=== PATIENT | male | born 1995 | race Two or more races ===

== ENCOUNTER 2019-12-10 11:41 | Inpatient (IN) | payer MEDICAID ==
[~2019-12-10] VITALS: Ht 167.6 cm; Wt 83.4 kg
[2019-12-10] MEDS ORDERED: DiphenhydrAMINE HCL 50 MG/ML VIAL IM ONE (13:00)
[2019-12-10] MEDS ORDERED: HALOPERIDOL LACTATE 5 MG/ML VIAL IM ONE (13:00)
[2019-12-10] MEDS ORDERED: LORazepam 2 MG/ML VIAL IM ONE (13:00)
[2019-12-10 13:26] LABS: BASOPHILS % (AUTO) 0.6 % (0.0-2.0); EOSINOPHILS % (AUTO) 0.3 % (1.0-6.0); HEMATOCRIT 44.8 % (41-53); HEMOGLOBIN 15.2 g/dL (13.5-17.5); LYMPHOCYTES # (AUTO) 1.3 K/uL (1.0-4.8); LYMPHOCYTES % (AUTO) 15.3 % (22.0-44.0); MEAN CORPUSCULAR HEMOGLOBIN 33.1 pg (26.0-34.0); MEAN CORPUSCULAR VOLUME 97 fL (80-100); MONOCYTES # (AUTO) 0.6 K/uL (0.1-1.0); NEUTROPHILS # (AUTO) 6.6 K/uL (1.8-7.7); NEUTROPHILS % (AUTO) 76.8 % (40.0-70.0); PLATELET COUNT (AUTO) 223 K/uL (150-450); RED BLOOD CELL COUNT(AUTO) 4.61 MIL/uL (4.50-5.90)
[2019-12-10 13:33] LABS: AMPHET/METH SCREEN,URINE NEGATIVE (NEGATIVE); BARBITURATE SCREEN, URINE NEGATIVE (NEGATIVE); BENZODIAZEPINES SCREEN,URINE NEGATIVE (NEGATIVE); CANNABINOID SCREEN,URINE POSITIVE (NEGATIVE); COCAINE SCREEN,URINE NEGATIVE (NEGATIVE); METHADONE SCREEN, URINE NEGATIVE (NEGATIVE); OPIATE SCREEN,URINE NEGATIVE (NEGATIVE)
[2019-12-10 13:36] LABS: PHENCYCLIDINE SCREEN,URINE NEGATIVE (NEGATIVE)
[2019-12-10 13:44] LABS: ALANINE AMINOTRANSFERASE 30 U/L (12-78); ALBUMIN 4.3 g/dL (3.4-5.0); ALKALINE PHOSPHATASE 82 U/L (46-116); ANION GAP 9 mmol/L (8-16); ASPARTATE AMINOTRANSFERASE 32 U/L (15-37); BILIRUBIN,TOTAL 0.8 mg/dL (0.1-1.0); CALCIUM, TOTAL 9.2 mg/dL (8.8-10.5); CARBON DIOXIDE 25 mmol/L (22-29); CHLORIDE 103 mmol/L (98-107); CREATININE 1.05 mg/dL (0.60-1.30); GLOMERULAR FILTR. RATE CALC > 60 mL/min (>60); GLUCOSE,RANDOM 144 mg/dL (70-110); POTASSIUM 3.5 mmol/L (3.5-5.1); SODIUM SERUM 137 mmol/L (136-145); TOTAL PROTEIN, SERUM 8.2 g/dL (6.4-8.2); UREA NITROGEN, BLOOD 8 mg/dL (7-18)
[2019-12-10 20:07] VITALS: BP 129/83
[2019-12-11] MEDS ORDERED: INFLUENZA VIRUS VACCINE QVS 2019-20 (3YR+)/PF 60 MCG/0.5 ML SYRINGE IM ONE (07:00)
[2019-12-11 08:10] LABS: CHOL/HDL RATIO 2.7 (4.2-7.3)
[2019-12-11] MEDS ORDERED: ONDANSETRON HCL 4 MG TABLET PO PRN (14:30)
[2019-12-11] MEDS ORDERED: GuaiFENesin/D-METHORPHAN [SUGAR-FREE] 200-20MG/10 ML SYRUP UDCUP PO PRN (14:30)
[2019-12-11] MEDS ORDERED: LOPERAMIDE HCL 2 MG CAPSULE PO PRN (14:30)
[2019-12-11] MEDS ORDERED: PETROLATUM,WHITE 28 GM JELLY TP PRN (14:30)
[2019-12-11] MEDS ORDERED: MAG HYDROX/AL HYDROX/SIMETH ES 30 ML SUSPENSION UDCUP PO PRN (14:30)
[2019-12-11] MEDS ORDERED: CloNIDine HCL 0.1 MG TABLET PO PRN (14:30)
[2019-12-11] MEDS ORDERED: ACETAMINOPHEN 325 MG TABLET PO PRN (14:30)
[2019-12-11] MEDS ORDERED: ALBUTEROL SULFATE HFA 90 MCG/PUFF 8 GM INHALER IH PRN (14:30)
[2019-12-11] MEDS ORDERED: MAGNESIUM HYDROXIDE SUSPENSION 30 ML UDCUP PO PRN (14:30)
[2019-12-11] MEDS ORDERED: DOCUSATE SODIUM 100 MG CAPSULE PO PRN (14:30)
[2019-12-11] MEDS ORDERED: NICOTINE 14 MG/24 HOUR PATCH TD PRN (14:30)
[2019-12-11 16:07] VITALS: BP 153/90
[2019-12-11] MEDS: OLANZapine 5 MG TABLET PO SCH (16:40)
[2019-12-12 08:14] VITALS: BP 154/94
[2019-12-12] MEDS: OLANZapine 5 MG TABLET PO SCH (08:15)
[2019-12-12 08:54] LABS: BASOPHILS % (AUTO) 0.4 % (0.0-2.0); EOSINOPHILS % (AUTO) 0.5 % (1.0-6.0); HEMATOCRIT 46.1 % (41-53); HEMOGLOBIN 15.5 g/dL (13.5-17.5); LYMPHOCYTES # (AUTO) 2.2 K/uL (1.0-4.8); LYMPHOCYTES % (AUTO) 29.6 % (22.0-44.0); MEAN CORPUSCULAR HGB CONC 33.6 G/dL (31.0-37.0); MEAN CORPUSCULAR VOLUME 98 fL (80-100); MONOCYTES # (AUTO) 0.5 K/uL (0.1-1.0); MONOCYTES % (AUTO) 7.3 % (2.0-9.0); NEUTROPHILS # (AUTO) 4.7 K/uL (1.8-7.7); NEUTROPHILS % (AUTO) 62.2 % (40.0-70.0); PLATELET COUNT (AUTO) 217 K/uL (150-450)
[2019-12-12] MEDS: LORazepam 2 MG TABLET PO PRN ×2 (12:16→18:15)
[2019-12-12] MEDS: OLANZapine 7.5 MG TABLET PO SCH (17:00)
[2019-12-13] MEDS: ZOLPIDEM TARTRATE 10 MG TABLET PO PRN (00:56)
[2019-12-13] MEDS: HALOPERIDOL 5 MG TABLET PO PRN (00:56)
[2019-12-13] MEDS: LORazepam 2 MG TABLET PO PRN ×2 (02:10→08:33)
[2019-12-13] MEDS: OLANZapine 7.5 MG TABLET PO SCH ×2 (08:33→17:14)
[2019-12-13 08:36] VITALS: BP 139/86
[2019-12-13 17:06] VITALS: BP 137/84
[2019-12-13] MEDS ORDERED: HALOPERIDOL LACTATE 5 MG/ML VIAL ONE (23:36)
[2019-12-13] MEDS ORDERED: DiphenhydrAMINE HCL 50 MG/ML VIAL ONE (23:36)
[2019-12-13] MEDS ORDERED: LORazepam 2 MG/ML VIAL ONE (23:36)
[2019-12-13] MEDS ORDERED: LORazepam 2 MG/ML VIAL IM ONE (23:45)
[2019-12-13] MEDS ORDERED: HALOPERIDOL LACTATE 5 MG/ML VIAL IM ONE (23:45)
[2019-12-13] MEDS ORDERED: DiphenhydrAMINE HCL 50 MG/ML VIAL IM ONE (23:45)
[2019-12-14] MEDS: OLANZapine 10 MG TABLET PO SCH ×2 (08:03→16:13)
[2019-12-14] MEDS: LORazepam 2 MG TABLET PO PRN (16:13)
[2019-12-14 16:36] VITALS: BP 134/78
[2019-12-14] MEDS: ZOLPIDEM TARTRATE 10 MG TABLET PO PRN (20:19)
[2019-12-15] MEDS: OLANZapine 10 MG TABLET PO SCH ×2 (08:24→16:21)
[2019-12-15 09:54] VITALS: BP 160/87
[2019-12-15 16:00] VITALS: BP 134/69
[2019-12-15] MEDS: DIVALPROEX SODIUM 500 MG ER TABLET PO SCH (16:21)
[2019-12-16] MEDS: ZOLPIDEM TARTRATE 10 MG TABLET PO PRN (01:42)
[2019-12-16] MEDS: LORazepam 2 MG TABLET PO PRN ×3 (01:42→19:54)
[2019-12-16 07:04] LABS: BASOPHILS % (AUTO) 0.7 % (0.0-2.0); EOSINOPHILS % (AUTO) 1.3 % (1.0-6.0); HEMATOCRIT 44.9 % (41-53); HEMOGLOBIN 15.1 g/dL (13.5-17.5); LYMPHOCYTES # (AUTO) 2.2 K/uL (1.0-4.8); LYMPHOCYTES % (AUTO) 36.9 % (22.0-44.0); MEAN CORPUSCULAR HEMOGLOBIN 33.1 pg (26.0-34.0); MEAN CORPUSCULAR HGB CONC 33.6 G/dL (31.0-37.0); MEAN CORPUSCULAR VOLUME 98 fL (80-100); MONOCYTES # (AUTO) 0.4 K/uL (0.1-1.0); MONOCYTES % (AUTO) 7.3 % (2.0-9.0); NEUTROPHILS # (AUTO) 3.2 K/uL (1.8-7.7); NEUTROPHILS % (AUTO) 53.8 % (40.0-70.0); PLATELET COUNT (AUTO) 212 K/uL (150-450); RED BLOOD CELL COUNT(AUTO) 4.57 MIL/uL (4.50-5.90); RED CELL DISTRIBUTION WIDTH 13.1 % (11.5-14.5)
[2019-12-16 07:25] LABS: ANION GAP 7 mmol/L (8-16); CARBON DIOXIDE 28 mmol/L (22-29); CHLORIDE 103 mmol/L (98-107); CREATININE 0.81 mg/dL (0.60-1.30); GLUCOSE,RANDOM 84 mg/dL (70-110); SODIUM SERUM 138 mmol/L (136-145); UREA NITROGEN, BLOOD 11 mg/dL (7-18)
[2019-12-16 07:26] LABS: ALANINE AMINOTRANSFERASE 21 U/L (12-78); ALBUMIN 3.5 g/dL (3.4-5.0); ALKALINE PHOSPHATASE 70 U/L (46-116); ASPARTATE AMINOTRANSFERASE 23 U/L (15-37); BILIRUBIN,TOTAL 0.4 mg/dL (0.1-1.0); CALCIUM, TOTAL 8.8 mg/dL (8.8-10.5); GLOMERULAR FILTR. RATE CALC > 60 mL/min (>60); TOTAL PROTEIN, SERUM 7.1 g/dL (6.4-8.2)
[2019-12-16 08:17] VITALS: BP 138/68
[2019-12-16] MEDS: OLANZapine 10 MG TABLET PO SCH ×2 (08:23→15:54)
[2019-12-16] MEDS: DIVALPROEX SODIUM 500 MG ER TABLET PO SCH ×2 (08:23→15:54)
[2019-12-16] MEDS: HALOPERIDOL 5 MG TABLET PO PRN (16:03)
[2019-12-16 16:12] VITALS: BP 148/93
[2019-12-16 16:14] VITALS: BP 142/93
[2019-12-17] MEDS: OLANZapine 10 MG TABLET PO SCH ×2 (08:27→16:24)
[2019-12-17] MEDS: DIVALPROEX SODIUM 500 MG ER TABLET PO SCH ×2 (08:27→16:24)
[2019-12-17 10:23] VITALS: BP 124/71
[2019-12-17 16:09] VITALS: BP 127/74
[2019-12-17 16:17] VITALS: BP 127/74
[2019-12-18] MEDS: DIVALPROEX SODIUM 500 MG ER TABLET PO SCH (09:12)
[2019-12-18] MEDS: OLANZapine 10 MG TABLET PO SCH (09:12)
[2019-12-18] MEDS ORDERED: DIVA500T69 PO (11:47)
[2019-12-18] MEDS ORDERED: OLAN10TA3 PO (11:48)
[2019-12-18 12:05] VITALS: BP 142/78
== END 2019-12-18 13:45 | disposition home or self-care (01) | DRG 885 ==
LOC: EDSEX 11:45 → EMS 11:45 → 3EC 18:06
PROVIDERS: ADMIT Psychiatry & Neurology Psychiatry; ATTEND Psychiatry & Neurology Psychiatry
DX: F20.0 Paranoid schizophrenia (principal); F10.10 Alcohol abuse, uncomplicated; F12.90 Cannabis use, unspecified, uncomplicated; I10 Essential (primary) hypertension; R45.850 Homicidal ideations; R45.87 Impulsiveness
CPT/HCPCS: 84443; 99291; G0480; J1200; J1630; J2060

== ENCOUNTER 2019-12-30 08:44 | Inpatient (IN) | payer MEDICAID ==
[~2019-12-30] VITALS: Ht 175.3 cm; Wt 88.5 kg
[~2019-12-30 08:44] MED LIST: DIVA500T69 PO; OLAN10TA3 PO
[2019-12-30 09:20] LABS: BASOPHILS % (AUTO) 0.8 % (0.0-2.0); HEMATOCRIT 43.6 % (41-53); HEMOGLOBIN 14.7 g/dL (13.5-17.5); LYMPHOCYTES # (AUTO) 1.6 K/uL (1.0-4.8); LYMPHOCYTES % (AUTO) 24.8 % (22.0-44.0); MEAN CORPUSCULAR HEMOGLOBIN 33.2 pg (26.0-34.0); MEAN CORPUSCULAR HGB CONC 33.6 G/dL (31.0-37.0); MEAN CORPUSCULAR VOLUME 99 fL (80-100); MONOCYTES # (AUTO) 0.6 K/uL (0.1-1.0); MONOCYTES % (AUTO) 9.2 % (2.0-9.0); NEUTROPHILS % (AUTO) 64.2 % (40.0-70.0); PLATELET COUNT (AUTO) 244 K/uL (150-450); RED BLOOD CELL COUNT(AUTO) 4.42 MIL/uL (4.50-5.90); RED CELL DISTRIBUTION WIDTH 13.5 % (11.5-14.5)
[2019-12-30 09:34] LABS: ANION GAP 6 mmol/L (8-16); CALCIUM, TOTAL 8.7 mg/dL (8.8-10.5); CARBON DIOXIDE 29 mmol/L (22-29); CHLORIDE 103 mmol/L (98-107); CREATININE 0.82 mg/dL (0.60-1.30); GLOMERULAR FILTR. RATE CALC > 60 mL/min (>60); GLUCOSE,RANDOM 88 mg/dL (70-110); POTASSIUM 3.9 mmol/L (3.5-5.1); SODIUM SERUM 138 mmol/L (136-145); UREA NITROGEN, BLOOD 12 mg/dL (7-18)
[2019-12-30 09:40] LABS: ALANINE AMINOTRANSFERASE 45 U/L (12-78); ALKALINE PHOSPHATASE 82 U/L (46-116); ASPARTATE AMINOTRANSFERASE 29 U/L (15-37); BILIRUBIN,TOTAL 0.4 mg/dL (0.1-1.0); TOTAL PROTEIN, SERUM 7.9 g/dL (6.4-8.2)
[2019-12-30] MEDS ORDERED: OLANZapine 5 MG TABLET PO ONE (09:45)
[2019-12-30 10:00] LABS: AMPHET/METH SCREEN,URINE NEGATIVE (NEGATIVE); BARBITURATE SCREEN, URINE NEGATIVE (NEGATIVE); BENZODIAZEPINES SCREEN,URINE NEGATIVE (NEGATIVE); CANNABINOID SCREEN,URINE POSITIVE (NEGATIVE); COCAINE SCREEN,URINE NEGATIVE (NEGATIVE); METHADONE SCREEN, URINE NEGATIVE (NEGATIVE); OPIATE SCREEN,URINE NEGATIVE (NEGATIVE)
[2019-12-30 10:10] LABS: PHENCYCLIDINE SCREEN,URINE NEGATIVE (NEGATIVE)
[2019-12-30] MEDS ORDERED: ZOLPIDEM TARTRATE 10 MG TABLET PO PRN (10:30)
[2019-12-30] MEDS ORDERED: HALOPERIDOL 5 MG TABLET PO PRN (10:30)
[2019-12-30 16:03] VITALS: BP 147/73
[2019-12-30] MEDS: DIVALPROEX SODIUM 500 MG ER TABLET PO SCH (16:54)
[2019-12-30] MEDS: OLANZapine 10 MG TABLET PO SCH (16:54)
[2019-12-31] MEDS ORDERED: INFLUENZA VIRUS VACCINE QVS 2019-20 (3YR+)/PF 60 MCG/0.5 ML SYRINGE IM ONE (00:30)
[2019-12-31 05:46] VITALS: BP 113/43
[2019-12-31 08:00] VITALS: BP 133/60
[2019-12-31] MEDS: DIVALPROEX SODIUM 500 MG ER TABLET PO SCH ×2 (09:04→16:37)
[2019-12-31] MEDS: OLANZapine 10 MG TABLET PO SCH ×2 (09:04→16:37)
[2019-12-31 16:01] VITALS: BP 133/66
[2020-01-01 05:36] VITALS: BP 106/62
[2020-01-01 08:20] VITALS: BP 135/55
[2020-01-01] MEDS: OLANZapine 10 MG TABLET PO SCH ×2 (08:21→15:58)
[2020-01-01] MEDS: LORazepam 2 MG TABLET PO PRN ×2 (08:21→15:58)
[2020-01-01] MEDS: DIVALPROEX SODIUM 500 MG ER TABLET PO SCH ×2 (08:21→15:58)
[2020-01-01 21:46] VITALS: BP 128/72
[2020-01-02 05:26] VITALS: BP 124/76
[2020-01-02] MEDS: OLANZapine 10 MG TABLET PO SCH ×2 (08:22→17:17)
[2020-01-02] MEDS: DIVALPROEX SODIUM 500 MG ER TABLET PO SCH ×2 (08:22→17:17)
[2020-01-02 08:33] VITALS: BP 131/68
[2020-01-02 16:00] VITALS: BP 135/65
[2020-01-02] MEDS: LORazepam 2 MG TABLET PO PRN (17:17)
[2020-01-03 04:41] VITALS: BP 116/72
[2020-01-03 08:16] VITALS: BP 122/53
[2020-01-03] MEDS: OLANZapine 10 MG TABLET PO SCH ×2 (08:36→16:29)
[2020-01-03] MEDS: DIVALPROEX SODIUM 500 MG ER TABLET PO SCH ×2 (08:39→16:29)
[2020-01-03 16:00] VITALS: BP 132/78
[2020-01-03] MEDS: LORazepam 2 MG TABLET PO PRN (16:29)
[2020-01-04 02:27] VITALS: BP 109/41
[2020-01-04 08:12] VITALS: BP 141/73
[2020-01-04] MEDS: DIVALPROEX SODIUM 500 MG ER TABLET PO SCH (08:20)
[2020-01-04] MEDS: OLANZapine 10 MG TABLET PO SCH (08:20)
== END 2020-01-04 12:50 | disposition home or self-care (01) | DRG 750 ==
LOC: EMS 08:44 → B3A 12:20
PROVIDERS: ADMIT Psychiatry & Neurology Psychiatry; ATTEND Psychiatry & Neurology Psychiatry
DX: F25.0 Schizoaffective disorder, bipolar type (principal); R45.850 Homicidal ideations; F12.90 Cannabis use, unspecified, uncomplicated; F41.9 Anxiety disorder, unspecified; I10 Essential (primary) hypertension
CPT/HCPCS: 87081; G0480